=== PATIENT | female | born 1940 | race Caucasian/White ===

== ENCOUNTER 2016-07-07 01:37 | Emergency (ER) | payer OTHER, MEDICARE ==
[2016-07-07 02:04] VITALS: BP 172/69; PULSE 97; TEMP 97.8; BMI 17.6
--- NOTE | 2016-07-07 02:49 | PDOC ---
History of Present Illness - General Chief Complaint: Injury Stated Complaint: FACIAL INJURY Time Seen by Provider: 07/07/16 01:58 History Source: Patient Exam Limitations: No Limitations - History of Present Illness Initial Comments: 07/07/16 02:43 76yo Female patient w/ PmHx: Hypothyroidsim presents to ED c/o fall and laceration to chin. 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 Patient states she band chin against counter causing laceration. Denies head injury, neck injury/pain, CP, Abd pain, n/v/d, LOC, blood thinner use or any other complaints at this time. Tetanus status: Not up to date. Occurred: reports: just prior to arrival Severity: reports: mild Pain Location: reports: face Method of Injury: Yes: fall Modifying Factors: improves with: None Loss of Consciousness: no loss of consciousness Associated Symptoms (Fall): denies symptoms Past History - Travel Traveled outside of the country in the last 30 days: No Close contact w/someone who was outside of country & ill: No - Past Medical History Allergies/Adverse Reactions: Allergies Allergy/AdvReac Type Severity Reaction Status Date / Time clarithromycin Allergy Severe Rash Verified 07/07/16 01:57 cobalt [Tatamy] Allergy Severe Swelling Verified 07/07/16 01:57 nickel [Nickel] Allergy Severe Swelling Verified 07/07/16 01:57 amoxicillin [Amoxicillin] Allergy Intermediate Rash Verified 07/07/16 01:57 newsprint Allergy Severe Swelling Uncoded 07/07/16 01:57 Home Medications: Ambulatory Orders Ergocalciferol (Vitamin D2) [Vitamin D] 400 unit PO DAILY 03/20/15 Multivitamins [Multivit ([facility] Form[facility])] 1 tab PO DAILY 03/20/15 Levothyroxine [Synthroid -] 75 mcg PO DAILY 07/15/15 Levothyroxine Sodium [Synthroid] 75 mcg PO DAILY tablet 08/02/15 Bacitracin - [Bacitracin Topical Ointment -] 1 applic TP DAILY PRN #1 tube 07/07 Sulfamethoxazole/Trimethoprim [Bactrim Ds -] 1 tab PO BID #6 tablet 07/07/16 Anemia: No Asthma: No Cancer: No Cardiac Disorders: No CVA: No COPD: No CHF: No Dementia: No Diabetes: No GI Disorders: Yes (H/O POLYPS) Disorders: No HTN: No Hypercholesterolemia: No Liver Disease: No Seizures: No Thyroid Disease: Yes (HYPO) - Surgical History Abdominal Surgery: No Appendectomy: No Cardiac Surgery: No Cholecystectomy: No Lung Surgery: No Neurologic Surgery: No Orthopedic Surgery: No - Psycho/Social/Smoking Cessation Hx Suicidal Ideation: No Smoking History: Never smoked Have you smoked in the past 12 months: No Information on smoking cessation initiated: No Hx Alcohol Use: No Drug/Substance Use Hx: No Substance Use Type: None Trauma Specific PMHX - Complaint Specific PMHX Arthritis: No Back Injury: No Neck Injury: No Hx Sacro Iliac Joint Dysfunction: No Review of Systems - Review of Systems Able to Perform ROS?: Yes Is the patient limited Irish proficient: No Constitutional: No: Chills, Fever HEENTM: Yes: Other (Swollen lip). No: Blurred Vision, Nose Bleeding, Throat Pain, Mouth Pain, Dental Problems, Difficulty Swallowing, Mouth Swelling Respiratory: No: Cough, Shortness of Breath, Stridor, Wheezing Cardiac (ROS): No: Chest Pain, Lightheadedness, Palpitations, Syncope, Chest Tightness ABD/GI: No: Constipated, Diarrhea, Nausea, Poor Appetite, Poor Fluid Intake, Vomiting, Abdominal cramping : No: Burning, Dysuria, Discharge, Flank Pain, Hematuria Musculoskeletal: No: Back Pain Integumentary: Yes: Other (Laceration to chin). No: Bruising, Erythema, Rash Neurological: No: Headache, Seizure, Tingling, Tremors, Ataxia, Dizziness All Other Systems: Reviewed and Negative *Physical Exam - Vital Signs Last Vital Signs Temp Pulse Resp BP Pulse Ox 97.8 F 97 H 14 172/69 100 07/07/16 01:57 07/07/16 01:57 07/07/16 01:57 07/07/16 01:57 07/07/16 01:57 - Physical Exam General Appearance: Yes: Nourished, Appropriately Dressed. No: Apparent Distress, Mild Distress, Moderate Distress, Severe Distress HEENT: positive: EOMI, JINNY, Normal ENT Inspection, Normal Voice, Symmetrical, TMs Normal, Pharynx Normal, Other (1 cm laceration to mucous membrane of lower lip with mild swelling and bruising.). negative: Pharyngeal Erythema, Tonsillar Exudate, Nasal Congestion, Rhinorrhea, TM Bulging, TM Dull, TM Erythema Neck: positive: Trachea midline, Supple. negative: Decreased range of motion, Stridor, Lymphadenopathy (R), Lymphadenopathy (L), Tender lateral, Tender midline Respiratory/Chest: positive: Lungs Clear, Normal Breath Sounds. negative: Chest Tender, Respiratory Distress, Accessory Muscle Use, Labored Respiration, Rapid RR Cardiovascular: positive: Regular Rhythm, Regular Rate. negative: Edema, JVD Gastrointestinal/Abdominal: positive: Normal Bowel Sounds, Soft. negative: Distended, Guarding, Rebound, Tenderness, Hernia, Mass Musculoskeletal: positive: Normal Inspection. negative: CVA Tenderness Extremity: positive: Normal Capillary Refill, Normal Inspection, Normal Range of Motion. negative: Pedal Edema, Swelling, Calf Tenderness, Erythema, Inflammation Integumentary: positive: Normal Color, Dry, Warm, Other (1.5 cm semicircular laceration to chin. Irregular. Bleeding controlled.). negative: Hives, Petechiae, Rash, Swelling, Bruising Neurologic: positive: artificial cherry maker II-XII NML intact, Fully Oriented, Alert, Normal Mood/ Affect, Normal Response, Motor Strength 5/5 Procedures - Laceration/Wound Repair Lower Face Wound Length: to 2.5 cm Wound Explored: clean Wound's Depth, Shape: into muscle, irregular Irrigated w/ Saline: Yes Betadine Prep: Yes Anesthesia: 1% Lidocaine Amount of Anesthetic (ccs): 3 Wound Debrided: None. Wound Repaired With: Sutures Suture Size/Type: 6:0, nylon Number of Sutures: 4 Layer Closure: No Progress: 07/07/16 02:52 Patient tolerated procedure well. 1.5 cm laceration irregular closed using 6.0 nylon x 4 and 1.0 cm laceration to mucous membrane of lower lip closed using 5.0 chromic gut x1. Bactrim DS given Tetanus IM *DC/Admit/Observation/Transfer Diagnosis at time of Disposition: Fall Qualifiers: Encounter type: initial encounter Qualified Code(s): W19.XXXA - Unspecified fall, initial encounter Head injury Qualifiers: Encounter type: initial encounter Qualified Code(s): S09.90XA - Unspecified injury of head, initial encounter - Discharge Dispostion Disposition: HOME Condition at time of disposition: Stable Admit: No - Prescriptions Prescriptions: Bacitracin - [Bacitracin Topical Ointment -] 1 applic TP DAILY PRN #1 tube PRN Reason: Wound Care Sulfamethoxazole/Trimethoprim [Bactrim Ds -] 1 tab PO BID #6 tablet - Referrals Referrals: Juan Gan MD [Primary Care Provider] - - Patient Instructions Additional Instructions: FOLLOW UP WITH YOUR PRIMARY CARE PROVIDER, RETURN TO THIS ED, OR VISIT AN URGENT CARE FOR SUTURE REMOVAL IN 5 DAYS. RETURN IF ANY CONCERNS FOR FURTHER EVALUATION. BACTRIM DS X 3 DAYS. TAKE ON FULL STOMACH. Print Language: [id number]
[2016-07-07] MEDS ORDERED: SULFAMETHOXAZOLE/TRIMETHOPRIM 800MG/160MG D.S. TABLET PO ONE (02:53)
[2016-07-07] MEDS ORDERED: TETANUS AND DIPHTHERIA TOXOID 0.5 ML DISP.SYRIN IM ONE (02:53)
[2016-07-07] MEDS ORDERED: SULFAMETHOXAZOLE/TRIMETHOPRIM 800MG/160MG D.S. TABLET ONE (02:56)
== END 2016-07-07 03:19 | disposition home or self-care (01) ==
LOC: JER 01:37
PROC: 0JQ10ZZ Repair Face Subcutaneous Tissue and Fascia, Open Approach (ICD-10-PCS; principal; 2016-07-07)
DX: S01.81XA Laceration without foreign body of other part of head, initial encounter (principal); W01.198A Fall on same level from slipping, tripping and stumbling with subsequent striking against other object, initial encounter; Y93.89 Activity, other specified; Y92.030 Kitchen in apartment as the place of occurrence of the external cause; E03.9 Hypothyroidism, unspecified
CPT/HCPCS: 12011-25; 99282-25

== ENCOUNTER 2020-12-19 11:40 | Emergency (ER) | payer OTHER, MEDICARE ==
[2020-12-19 11:56] VITALS: BP 168/81; PULSE 96; TEMP 97.8; BMI 15.9
[2020-12-19] MEDS ORDERED: ACETAMINOPHEN 325 MG TABLET (FP) PO ONE (12:42)
[2020-12-19] MEDS ORDERED: ACETAMINOPHEN 325 MG TABLET (FP) ONE (13:00)
== END 2020-12-19 14:32 | disposition home or self-care (01) ==
LOC: JER 11:40
DX: M25.559 Pain in unspecified hip (principal)
CPT/HCPCS: 72170-TC-FY; 82962; 99284-25

== ENCOUNTER 2021-06-07 14:41 | Inpatient (IN) | payer OTHER, MEDICARE ==
[2021-06-07 16:20] LABS: BASO % 0.3 % (0-2.0); EOS % 0.1 % (0-4.5); HEMATOCRIT 35.2 % (32.4-45.2); HEMOGLOBIN 11.8 GM/dL (10.7-15.3); LYMPH % 13.9 % (8-40); MCH 32.8 pg (25.7-33.7); MCHC 33.6 g/dl (32.0-36.0); MEAN CELL VOLUME 97.4 fl (80-96); NEUT % 77.7 % (42.8-82.8); PLATELET COUNT 288 10^3/uL (134-434); RBC 3.61 M/mm3 (3.60-5.2); RDW 13.7 % (11.6-15.6); WHITE BLOOD COUNT 5.5 K/mm3 (4.0-10.0)
[2021-06-07 16:26] LABS: INR 0.98 (0.83-1.09); PROTHROMBIN TIME (PATIENT) 11.3 SEC (9.7-13.0)
[2021-06-07 16:29] LABS: ACTIVATED PTT 29.2 SECONDS (25.2-36.5)
[2021-06-07 16:38] LABS: ALBUMIN 3.9 g/dl (3.4-5.0); CALCIUM 9.2 mg/dL (8.5-10.1)
[2021-06-07 16:39] LABS: BLOOD UREA NITROGEN 21.2 mg/dL (7-18); MAGNESIUM 2.2 mg/dL (1.8-2.4)
[2021-06-07 16:42] LABS: CREATININE 0.7 mg/dL (0.55-1.3)
[2021-06-07 16:43] LABS: BILIRUBIN,TOTAL 0.3 mg/dL (0.2-1)
[2021-06-07 17:22] LABS: URINE APPEARANCE CLEAR; URINE BILIRUBIN NEGATIVE (NEGATIVE); URINE COLOR YELLOW; URINE GLUCOSE (UA) NEGATIVE (NEGATIVE); URINE KETONE NEGATIVE (NEGATIVE); URINE LEUK ESTERASE NEGATIVE (NEGATIVE); URINE NITRITE NEGATIVE (NEGATIVE); URINE PROTEIN NEGATIVE (NEGATIVE); URINE UROBILINOGEN 0.2 mg/dL (0.2-1.0)
[2021-06-07 23:44] VITALS: BMI 17.0
[2021-06-08] MEDS ORDERED: LEVOTHYROXINE NA 75 MCG TABLET (FP) PO SCH (07:00)
[2021-06-08] MEDS: LEVOTHYROXINE NA 50 MCG TABLET (FP) PO SCH (08:50)
[2021-06-08] MEDS: ENOXAPARIN NA (PORCINE) 40 MG/0.4 ML DISP.SYRIN SQ SCH (09:34)
[2021-06-08] MEDS ORDERED: ERGOCALCIFEROL 400 UNIT PO SCH (10:00)
[2021-06-08 10:25] LABS: BASO % 3.1 % (0-2.0); EOS % 0.5 % (0-4.5); HEMATOCRIT 36.7 % (32.4-45.2); HEMOGLOBIN 12.1 GM/dL (10.7-15.3); MCH 32.2 pg (25.7-33.7); MEAN CELL VOLUME 97.6 fl (80-96); MEAN PLT VOLUME 8.2 fl (7.5-11.1); MONO % 5.6 % (3.8-10.2); NEUT % 75.8 % (42.8-82.8); PLATELET COUNT 312 10^3/uL (134-434); RBC 3.77 M/mm3 (3.60-5.2); RDW 13.6 % (11.6-15.6); WHITE BLOOD COUNT 4.6 K/mm3 (4.0-10.0)
[2021-06-08 10:38] LABS: INR 0.96 (0.83-1.09)
[2021-06-08 10:40] LABS: ACTIVATED PTT 30.9 SECONDS (25.2-36.5)
[2021-06-08 10:43] LABS: ALBUMIN 3.8 g/dl (3.4-5.0); BLOOD UREA NITROGEN 16.7 mg/dL (7-18); CALCIUM 8.9 mg/dL (8.5-10.1); MAGNESIUM 2.1 mg/dL (1.8-2.4)
[2021-06-08 10:46] LABS: CREATININE 0.7 mg/dL (0.55-1.3); PHOSPHOROUS 3.2 mg/dL (2.5-4.9)
[2021-06-08 10:48] LABS: BILIRUBIN,TOTAL 0.4 mg/dL (0.2-1)
[2021-06-09] MEDS: LEVOTHYROXINE NA 50 MCG TABLET (FP) PO SCH (06:26)
[2021-06-09] MEDS: ENOXAPARIN NA (PORCINE) 40 MG/0.4 ML DISP.SYRIN SQ SCH (10:23)
[2021-06-09 13:50] LABS: BASO % 0.4 % (0-2.0); EOS % 0.1 % (0-4.5); HEMATOCRIT 36.3 % (32.4-45.2); HEMOGLOBIN 12.3 GM/dL (10.7-15.3); LYMPH % 17.5 % (8-40); MCH 32.7 pg (25.7-33.7); MCHC 33.8 g/dl (32.0-36.0); MEAN CELL VOLUME 96.8 fl (80-96); MEAN PLT VOLUME 7.8 fl (7.5-11.1); MONO % 6.8 % (3.8-10.2); NEUT % 75.2 % (42.8-82.8); PLATELET COUNT 303 10^3/uL (134-434); RBC 3.75 M/mm3 (3.60-5.2); RDW 13.8 % (11.6-15.6); WHITE BLOOD COUNT 5.8 K/mm3 (4.0-10.0)
[2021-06-09 14:27] LABS: CALCIUM 9.1 mg/dL (8.5-10.1)
[2021-06-09 14:29] LABS: BLOOD UREA NITROGEN 19.4 mg/dL (7-18); MAGNESIUM 2.3 mg/dL (1.8-2.4)
[2021-06-09 14:31] LABS: CREATININE 0.6 mg/dL (0.55-1.3); PHOSPHOROUS 4.1 mg/dL (2.5-4.9)
[2021-06-09 15:39] VITALS: BP 125/75; PULSE 89; TEMP 98.4
== END 2021-06-09 17:27 | disposition home or self-care (01) | DRG 884 ==
LOC: JER 14:41 → JERBED 15:30 → J5S 21:28
PROVIDERS: ADMIT Internal Medicine; ATTEND Internal Medicine
DX: F03.90 Unspecified dementia, unspecified severity, without behavioral disturbance, psychotic disturbance, mood disturbance, and anxiety (principal); R64 Cachexia; Z68.1 Body mass index [BMI] 19.9 or less, adult; E03.9 Hypothyroidism, unspecified; R41.82 Altered mental status, unspecified; E16.2 Hypoglycemia, unspecified; M81.0 Age-related osteoporosis without current pathological fracture; R51.9 Headache, unspecified; E53.8 Deficiency of other specified B group vitamins; M50.322 Other cervical disc degeneration at C5-C6 level
CPT/HCPCS: 36415; 70450-TC; 71045-TC-FY; 72125-TC; 80048; 80053; 81003; 82607; 83036; 83735; 84100; 84443; 84484; 85025; 85610; 85730; 86780; 87086; 93005; 93010; 93880-TC; 97116-GP; 97162-GP; 99285-25; C9803-CS; U0003; U0005

== ENCOUNTER 2022-01-03 21:02 | Inpatient (IN) | payer OTHER, MEDICARE ==
[2022-01-04 02:09] LABS: BASO % 0.1 % (0-2.0); HEMATOCRIT 38.6 % (32.4-45.2); HEMOGLOBIN 12.8 GM/dL (10.7-15.3); LYMPH % 5.3 % (8-40); MCH 31.6 pg (25.7-33.7); MCHC 33.1 g/dl (32.0-36.0); MEAN CELL VOLUME 95.6 fl (80-96); MEAN PLT VOLUME 8.2 fl (7.5-11.1); MONO % 4.8 % (3.8-10.2); NEUT % 89.8 % (42.8-82.8); PLATELET COUNT 267 10^3/uL (134-434); RBC 4.03 M/mm3 (3.60-5.2); RDW 13.5 % (11.6-15.6); WHITE BLOOD COUNT 9.6 K/mm3 (4.0-10.0)
[2022-01-04 02:30] LABS: ALBUMIN 3.7 g/dl (3.4-5.0); BLOOD UREA NITROGEN 18.6 mg/dL (7-18)
[2022-01-04 02:33] LABS: CREATININE 0.8 mg/dL (0.55-1.3)
[2022-01-04 02:35] LABS: BILIRUBIN,TOTAL 0.8 mg/dL (0.2-1); TOT PROT 6.7 g/dl (6.4-8.2)
[2022-01-04] MEDS ORDERED: LACTATED RINGERS SOLUTION 1,000 ML/1,000 ML INFUS.BAG IV SCH (03:30)
[2022-01-04] MEDS ORDERED: LEVOTHYROXINE NA 50 MCG TABLET (FP) ONE (07:45)
[2022-01-04] MEDS: LEVOTHYROXINE NA 50 MCG TABLET (FP) PO SCH (07:58)
[2022-01-04 12:38] LABS: PHOSPHOROUS 4.3 mg/dL (2.5-4.9)
[2022-01-04 12:42] LABS: PREALBUMIN 19.9 mg/dl (20-40)
[2022-01-04] MEDS: SODIUM CHLORIDE 1,000 ML IV SCH (14:09)
[2022-01-04 15:55] LABS: EPI CELLS 11 /uL (0-25.1); HYALINE CASTS 3 /uL (0-3.1); PH,URINE 5.5 (5.0-8.0); URINE APPEARANCE CLEAR; URINE BACTERIA 19 /uL (0-1359); URINE BILIRUBIN NEGATIVE (NEGATIVE); URINE COLOR YELLOW; URINE GLUCOSE (UA) NEGATIVE (NEGATIVE); URINE KETONE 1+ (NEGATIVE); URINE LEUK ESTERASE NEGATIVE (NEGATIVE); URINE NITRITE NEGATIVE (NEGATIVE); URINE PROTEIN 1+ (NEGATIVE); URINE RBC 8 /uL (0-23.9); URINE UROBILINOGEN 0.2 mg/dL (0.2-1.0); URINE WBC 16 /uL (0-25.8)
[2022-01-04] MEDS ORDERED: HALOPERIDOL LACTATE 5 MG/ML IM STA ×2 (19:56→19:57)
[2022-01-04] MEDS ORDERED: HALOPERIDOL LACTATE 5 MG/ML IM ONE (19:57)
[2022-01-05] MEDS: SODIUM CHLORIDE 1,000 ML IV SCH ×2 (01:28→21:26)
[2022-01-05] MEDS: LEVOTHYROXINE NA 50 MCG TABLET (FP) PO SCH (06:32)
[2022-01-05 12:19] LABS: CALCIUM 8.5 mg/dL (8.5-10.1)
[2022-01-05 12:20] LABS: BLOOD UREA NITROGEN 23.9 mg/dL (7-18)
[2022-01-05 12:24] LABS: CREATININE 0.6 mg/dL (0.55-1.3)
[2022-01-05] MEDS: DONEPEZIL HCL 5 MG TABLET (FP) PO SCH (21:25)
[2022-01-06] MEDS: LEVOTHYROXINE NA 50 MCG TABLET (FP) PO SCH (06:06)
[2022-01-06] MEDS ORDERED: QUEtiapine FUMARATE 25 MG TABLET PO SCH ×3 (10:45→22:00)
[2022-01-06 14:57] VITALS: BMI 17.2
[2022-01-06] MEDS: SODIUM CHLORIDE 1,000 ML IV SCH (22:03)
[2022-01-06] MEDS: DONEPEZIL HCL 5 MG TABLET (FP) PO SCH (22:03)
[2022-01-07] MEDS: LEVOTHYROXINE NA 50 MCG TABLET (FP) PO SCH (06:24)
[2022-01-07] MEDS ORDERED: DONEPEZIL HCL 10 MG TABLET (FP) PO SCH (09:05)
[2022-01-07] MEDS ORDERED: OLANZapine 2.5 MG TABLET PO SCH (22:00)
[2022-01-08 06:56] VITALS: RESP 18
[2022-01-08] MEDS: LEVOTHYROXINE NA 50 MCG TABLET (FP) PO SCH (07:03)
[2022-01-08 15:34] VITALS: BP 133/84; PULSE 82; TEMP 98
[2022-01-08] MEDS ORDERED: OLANZapine 2.5 MG TABLET PO SCH (18:00)
[2022-01-08] MEDS ORDERED: DONEPEZIL HCL 10 MG TABLET (FP) PO SCH (18:00)
== END 2022-01-08 20:43 | DRG 884 ==
LOC: JER 21:02 → JERBED 01-04 03:30 → J8W 01-04 22:55 → J5S 01-05 15:19 → J8W 01-05 16:47
PROVIDERS: ADMIT Internal Medicine; ATTEND Nurse Practitioner Acute Care
DX: F03.90 Unspecified dementia, unspecified severity, without behavioral disturbance, psychotic disturbance, mood disturbance, and anxiety (principal); G93.41 Metabolic encephalopathy; F05 Delirium due to known physiological condition; E03.9 Hypothyroidism, unspecified; R45.1 Restlessness and agitation
CPT/HCPCS: 0241U-QW; 36415; 70450-TC; 71045-TC-FY; 72125-TC; 72170-TC-FY; 73030-TC-RT-FY; 73521-TC-FY; 80048; 80053; 81003; 82550; 82553; 83735; 84100; 84134; 84443; 84484; 85025; 87086; 93005; 93010; 97116-GP; 97161-GP; 99285-25